=== PATIENT | male | born 2000 | race Caucasian/White ===

== ENCOUNTER 2019-01-07 18:53 | Emergency (ER) | payer OTHER ==
[2019-01-07 19:29] VITALS: BP 128/63
--- NOTE | 2019-01-07 20:21 | ED ---
Throat Pain/Nasal Congestion - HPI Summary HPI Summary: 18-year-old male presents with nasal injury yesterday. He states he got elbowed in the nose. He states nose did bleed. He has increased swelling to the area. He states that his nose is slightly off from midline. Denies any headache. No loss consciousness. No nausea and no vomiting. - History of Current Complaint Chief Complaint: EDGeneral Time Seen by Provider: 01/07/19 20:02 - Allergies/Home Medications Allergies/Adverse Reactions: Allergies Allergy/AdvReac Type Severity Reaction Status Date / Time No Known Allergies Allergy Verified 01/07/19 19:28 PMH/Surg Hx/FS Hx/Imm Hx Endocrine/Hematology History: Denies: Hx Anticoagulant Therapy Cardiovascular History: Denies: Hx Myocardial Infarction Infectious Disease History: No Infectious Disease History: Denies: Traveled Outside the [place] in Last 30 Days - Family History Known Family History: Positive: Non-Contributory - Social History Alcohol Use: None Substance Use Type: Reports: None Smoking Status (MU): Unknown if Ever Smoked Review of Systems Negative: Fever Positive: Epistaxis Negative: Chest Pain Negative: Shortness Of Breath All Other Systems Reviewed And Are Negative: Yes Physical Exam Triage Information Reviewed: Yes Vital Signs On Initial Exam: Initial Vitals Temp Pulse Resp BP Pulse Ox 98.8 F 73 20 128/63 98 01/07/19 19:26 01/07/19 19:26 01/07/19 19:26 01/07/19 19:26 01/07/19 19:26 Vital Signs Reviewed: Yes Appearance: Positive: Well-Appearing Skin: Positive: Warm, Dry Head/Face: Positive: Normal Head/Face Inspection Eyes: Positive: Normal, EOMI, NOELLE, Conjunctiva Clear ENT: Positive: Pharynx normal, TMs normal, Other - no septal hematoma, nares is slightly over center Respiratory/Lung Sounds: Positive: Clear to Auscultation, Breath Sounds Present Cardiovascular: Positive: Normal, RRR Musculoskeletal: Positive: Normal Neurological: Positive: Normal Psychiatric: Positive: Normal Diagnostics - Vital Signs Vital Signs Temp Pulse Resp BP Pulse Ox 01/07/19 19:26 98.8 F 73 20 128/63 98 - Laboratory Lab Statement: Any lab studies that have been ordered have been reviewed, and results considered in the medical decision making process. EENT Course/Dx - Course Course Of Treatment: 18-year-old male presents with nasal injury yesterday. He states he got elbowed in the nose. He states nose did bleed. He has increased swelling to the area. He states that his nose is slightly off from midline. Denies any headache. No loss consciousness. No nausea and no vomiting. On exam slight deviation to the left naris. No septal hematoma. Discussed will try a manual reduction which attempted and got some improvement. Discussed getting a CT scan or x-rays is of limited benefit but will give referral to ENT to follow up. told to place ice on the area. Patient understands and agrees with plan. - Differential Diagnoses Differential Diagnoses: Contusion, Epistaxis, Fracture - Diagnoses Provider Diagnoses: Nasal fracture Discharge - Sign-Out/Discharge Documenting (check all that apply): Patient Departure Patient Received Moderate/Deep Sedation with Procedure: No - Discharge Plan Condition: Good Disposition: HOME Patient Education Materials: Nasal Fracture (ED) Referrals: YOGESH Cornelius [Primary Care Provider] - Xavier Chi MD [Medical Doctor] - Additional Instructions: ice the area Take tyenlol or ibuprofen every 6 hours as needed for pain follow up with ENT Return to ED if develop any new or worsening symptoms - Billing Disposition and Condition Condition: GOOD Disposition: Home
== END 2019-01-07 20:30 | disposition home or self-care (01) ==
LOC: ED 18:53
DX: S02.2XXA Fracture of nasal bones, initial encounter for closed fracture (principal); W50.0XXA Accidental hit or strike by another person, initial encounter; Y92.9 Unspecified place or not applicable
CPT/HCPCS: 99281